=== PATIENT | female | born 1965 | race Caucasian/White ===

== ENCOUNTER 2016-06-07 20:46 | Emergency (ER) | payer OTHER ==
[~2016-06-07 20:46] MED LIST: AMLODIPINE BESYL5 M1 PO; ANTIVERT/2525 MG PO; CLINDAMYCIN300 M1 PO; COZAAR100 MG PO; LOSARTAN POTASS1 TA6 PO; OMEPRAZOLE DR20 M1 PO
[2016-06-07 21:24] LABS: BASOPHIL % 0.6 % (0-2); PLATELET COUNT 213 x10^3mcL (130-400); RED CELL DISTRIBUTION WIDTH 14.4 % (11.5-14.5)
[2016-06-07 21:36] LABS: CALCIUM 8.9 mg/dL (8.5-10.1); CARBON DIOXIDE 26.7 mmol/L (21-32); CHLORIDE SERUM 97 mmol/L (98-107); CREATININE SERUM 0.7 mg/dL (0.6-1.0); GFR1 > 60 mL/min; GLUCOSE SERUM 132 mg/dL (74-106); POTASSIUM SERUM 3.2 mmol/L (3.5-5.1); SODIUM SERUM 134 mmol/L (136-145)
[2016-06-07 21:41] LABS: ALBUMIN 3.9 g/dL (3.4-5.0); ALKALINE PHOSPHATASE 61 U/L (46-116); ALT/SGPT 31 U/L (14-59); AST/SGOT 16 U/L (15-37); BILIRUBIN TOTAL 0.49 mg/dL (0.20-1.00); TOTAL PROTEIN, SERUM 7.9 g/dL (6.4-8.2)
[2016-06-07 21:53] LABS: CK-MB < 0.5 ng/mL (0-3.6); CREATINE KINASE 74 U/L (26-192)
[2016-06-07 23:07] VITALS: BP 132/86
== END 2016-06-07 23:07 | disposition home or self-care (01) ==
LOC: ED 20:46
PROVIDERS: Emergency Medicine
DX: R07.9 Chest pain, unspecified (principal); R10.9 Unspecified abdominal pain; J02.9 Acute pharyngitis, unspecified; I10 Essential (primary) hypertension; Z88.5 Allergy status to narcotic agent; Z88.8 Allergy status to other drugs, medicaments and biological substances; Z79.899 Other long term (current) drug therapy
CPT/HCPCS: 83880; J3010; Q0092; Q0162

== ENCOUNTER 2017-05-14 09:06 | Emergency (ER) | payer OTHER ==
[~2017-05-14] VITALS: Ht 154.9 cm; Wt 86.2 kg
[2017-05-14 09:19] VITALS: Ht 154.9 cm; Wt 86.2 kg
[2017-05-14 10:10] LABS: BASOPHIL % 0.6 % (0-2); PLATELET COUNT 187 x10^3mcL (130-400)
[2017-05-14 10:14] LABS: CALCIUM 8.9 mg/dL (8.5-10.1); CARBON DIOXIDE 25.2 mmol/L (21-32); CHLORIDE SERUM 101 mmol/L (98-107); CREATININE SERUM 0.8 mg/dL (0.6-1.0); GFR1 > 60 mL/min; GLUCOSE SERUM 99 mg/dL (74-106); POTASSIUM SERUM 3.9 mmol/L (3.5-5.1); SODIUM SERUM 138 mmol/L (136-145)
[2017-05-14 10:18] LABS: microscopic required? NO
[2017-05-14 10:19] LABS: ALBUMIN 3.9 g/dL (3.4-5.0); ALKALINE PHOSPHATASE 55 U/L (46-116); ALT/SGPT 49 U/L (14-59); AST/SGOT 26 U/L (15-37); BILIRUBIN TOTAL 0.39 mg/dL (0.20-1.00); TOTAL PROTEIN, SERUM 7.6 g/dL (6.4-8.2)
[2017-05-14 11:22] LABS: urine erythrocyte NEGATIVE (NEGATIVE)
[2017-05-14 12:22] VITALS: BP 119/81
== END 2017-05-14 12:25 | disposition home or self-care (01) ==
LOC: ED 09:06
PROVIDERS: Emergency Medicine
DX: R21 Rash and other nonspecific skin eruption (principal); M79.1 Myalgia; R50.9 Fever, unspecified; I10 Essential (primary) hypertension; Z88.5 Allergy status to narcotic agent; Z88.8 Allergy status to other drugs, medicaments and biological substances
CPT/HCPCS: 36415

== ENCOUNTER 2017-05-24 15:11 | Emergency (ER) | payer OTHER ==
[~2017-05-24] VITALS: Ht 160 cm; Wt 86.6 kg
[2017-05-24 15:24] VITALS: Ht 160 cm; Wt 86.6 kg
[2017-05-24 17:37] VITALS: BP 135/86
== END 2017-05-24 18:12 | disposition home or self-care (01) ==
LOC: ED 15:11
DX: L50.0 Allergic urticaria (principal); M79.1 Myalgia; R11.0 Nausea; I10 Essential (primary) hypertension; Z88.5 Allergy status to narcotic agent; Z88.8 Allergy status to other drugs, medicaments and biological substances
CPT/HCPCS: J1200; J1885; J7512

== ENCOUNTER 2019-02-11 11:16 | Emergency (ER) | payer OTHER ==
[2019-02-11 13:43] VITALS: BP 161/91
== END 2019-02-11 13:15 | disposition home or self-care (01) ==
LOC: ED 11:16
DX: B02.9 Zoster without complications (principal); I10 Essential (primary) hypertension; Z88.5 Allergy status to narcotic agent; Z88.8 Allergy status to other drugs, medicaments and biological substances
CPT/HCPCS: J1885

== ENCOUNTER 2019-03-25 17:56 | Emergency (ER) | payer OTHER ==
[~2019-03-25] VITALS: Ht 160 cm; Wt 88.5 kg
[2019-03-25 18:04] VITALS: Ht 160 cm; Wt 88.5 kg
[2019-03-25 20:33] VITALS: BP 149/95
== END 2019-03-25 20:33 | disposition home or self-care (01) ==
LOC: ED 17:56
DX: J98.01 Acute bronchospasm (principal); I10 Essential (primary) hypertension; B02.9 Zoster without complications; E66.9 Obesity, unspecified; Z68.34 Body mass index [BMI] 34.0-34.9, adult; Z90.710 Acquired absence of both cervix and uterus; Z88.5 Allergy status to narcotic agent; Z88.8 Allergy status to other drugs, medicaments and biological substances
CPT/HCPCS: 87804

== ENCOUNTER 2019-05-05 19:03 | Emergency (ER) | payer OTHER ==
[~2019-05-05] VITALS: Ht 157.5 cm; Wt 88.5 kg
[2019-05-05 19:11] VITALS: Ht 157.5 cm; Wt 88.5 kg
[2019-05-05 21:16] VITALS: BP 144/88
== END 2019-05-05 21:16 | disposition home or self-care (01) ==
LOC: ED 19:03
DX: J18.9 Pneumonia, unspecified organism (principal)
CPT/HCPCS: 87804